=== PATIENT | female | born 1935 | race Caucasian/White ===

== ENCOUNTER → 2017-02-24 | Outpatient (CLI) | payer MEDICARE | LOC: MAMO 02-19 09:30 → KOH-I 02-19 11:00 → MAMO 02-21 10:20 | DX: Z12.31 Encounter for screening mammogram for malignant neoplasm of breast (principal); M81.0 Age-related osteoporosis without current pathological fracture; Z78.0 Asymptomatic menopausal state | CPT/HCPCS: 77080; G0202 ==

== ENCOUNTER 2020-10-31 09:51 | Inpatient (IN) | payer MEDICARE, OTHER ==
[~2020-10-31] VITALS: Ht 162.6 cm; Wt 52.7 kg
[2020-10-31 10:28] LABS: HEMOGLOBIN 13.4 gm/dl (12.3-15.3); RED BLOOD COUNT 4.05 M/UL (4.00-5.10); WHITE BLOOD COUNT 11.6 K/UL (4.5-11.0)
[2020-10-31] MEDS ORDERED: AMLODIPINE BESYL5 MG PO (11:52)
[2020-10-31] MEDS ORDERED: HYDRALAZINE HCL50 MG PO (11:53)
[2020-10-31] MEDS ORDERED: HYDROCHLOROTHIA25 MG PO (11:53)
[2020-10-31] MEDS ORDERED: COZAAR100 MG PO (11:53)
[2020-10-31] MEDS ORDERED: FISH OIL 1,0001 EACH PO (12:19)
[2020-10-31] MEDS ORDERED: ALENDRONATE SOD70 MG PO (12:19)
[2020-10-31] MEDS ORDERED: DAILY VALUE1 EACH PO (12:20)
[2020-10-31] MEDS ORDERED: VITAMIN D325 MCG PO (12:21)
[2020-10-31] MEDS ORDERED: ALEVE220 MG PO (12:22)
[2020-10-31] MEDS ORDERED: FLONASE 0.05% N16 GM (12:22)
[2020-10-31] MEDS ORDERED: PRESERVISION A1 EAC1 PO (12:22)
[2020-11-01 04:04] LABS: HEMOGLOBIN 11.8 gm/dl (12.3-15.3); RED BLOOD COUNT 3.65 M/UL (4.00-5.10)
[2020-11-01 04:07] LABS: WHITE BLOOD COUNT 8.6 K/UL (4.5-11.0)
[2020-11-02 02:44] LABS: HEMOGLOBIN 12.5 gm/dl (12.3-15.3); RED BLOOD COUNT 3.85 M/UL (4.00-5.10)
[2020-11-02 02:53] LABS: WHITE BLOOD COUNT 11.4 K/UL (4.5-11.0)
[2020-11-02 09:38] LABS: BODY FLUID SOURCE PLEURAL
[2020-11-02 09:40] LABS: MONONUCLEAR CELLS 96.1 (75-100); POLYMORPHONUCLEAR % 3.9 (0-25); RBC (AUTOMATED) 500 (0-100000); WBC (AUTOMATED) 710 (0-500)
[2020-11-02 09:48] LABS: TOTAL PROTEIN, BODY FLUID 3.5 gm/dL
--- NOTE | 2020-11-02 13:27 | NUR ---
PATIENT SET UP PER DR WOMACK'S INSTRUCTIONS. MD ARRIVES AT 836AM. PATIENT TOLERATED PROCEDURE WELL. 1200CC FLUID REMOVED. ORDERS FOR ROBITUSSIN/CDN AND STAT CHEST XRAY.PROCEDURE FINISHED AT 0910AM
[2020-11-03 03:15] LABS: HEMOGLOBIN 12.5 gm/dl (12.3-15.3); RED BLOOD COUNT 3.92 M/UL (4.00-5.10); WHITE BLOOD COUNT 11.5 K/UL (4.5-11.0)
[2020-11-03 11:35] LABS: LDH, BODY FLUID 139 U/L
[2020-11-03 12:06] LABS: BODY FLUID SOURCE PLEURAL
[2020-11-04] MEDS ORDERED: XARELTO20 MG PO (10:21)
[2020-11-04] MEDS ORDERED: LEVOFLOXACIN500 MG PO (10:21)
[2020-11-04] MEDS ORDERED: FUROSEMIDE40 MG PO (10:21)
[2020-11-04] MEDS ORDERED: LOPRESSOR 25 MG25 MG PO (10:21)
[2020-11-04] MEDS ORDERED: DILTIAZEM 12HR60 MG PO (10:21)
== END 2020-11-04 13:44 | disposition home or self-care (01) | DRG 186 ==
LOC: ER1 09:51 → CDU 11:48 → ER1 11:48 → PROG CARE 20:13
PROVIDERS: Internal Medicine; Physician Assistant; ADMIT Internal Medicine
PROC: B24BZZZ Ultrasonography of Heart with Aorta (ICD-10-PCS; principal; 2020-11-01)
PROC: 0W9B3ZX Drainage of Left Pleural Cavity, Percutaneous Approach, Diagnostic (ICD-10-PCS; 2020-11-02)
PROC: 0W9B30Z Drainage of Left Pleural Cavity with Drainage Device, Percutaneous Approach (ICD-10-PCS; 2020-11-03)
DX: J90 Pleural effusion, not elsewhere classified (principal); J96.01 Acute respiratory failure with hypoxia; E87.1 Hypo-osmolality and hyponatremia; I31.3 Pericardial effusion (noninflammatory); J98.11 Atelectasis; I48.91 Unspecified atrial fibrillation; E78.5 Hyperlipidemia, unspecified; D72.829 Elevated white blood cell count, unspecified; M81.0 Age-related osteoporosis without current pathological fracture; Z20.822 Contact with and (suspected) exposure to COVID-19; M19.90 Unspecified osteoarthritis, unspecified site; I27.20 Pulmonary hypertension, unspecified; I10 Essential (primary) hypertension; Z79.899 Other long term (current) drug therapy; Z82.49 Family history of ischemic heart disease and other diseases of the circulatory system; Z80.9 Family history of malignant neoplasm, unspecified; Z82.3 Family history of stroke; Z80.42 Family history of malignant neoplasm of prostate
CPT/HCPCS: ECHO; 36415; 71045; 71046; 71250; 80048; 80053; 82150; 82550; 82553; 82945; 83605; 83615; 83880; 83986; 84157; 84439; 84443; 84484; 85025; 85610; 85730; 87015; 87040; 87116; 87206; 89051; 93005; 93306; 94760; 96365; 96375; 96376; 99285; C1729; J0456; J0696; J1940; J1956; J2543; J7030; J7070; U0002

== ENCOUNTER → 2020-11-08 | Outpatient (CLI) | payer MEDICARE, OTHER ==
[~2020-11-08] MED LIST: ALENDRONATE SOD70 MG PO; ALEVE220 MG PO; AMLODIPINE BESYL5 MG PO; ASPIRIN CHEWABL81 MG PO; BUMETANIDE1 MG PO; CALCIUM500 MG PO; CARDIZEM CD120 MG PO; CEFDINIR300 MG PO; COZAAR100 MG PO; DAILY VALUE1 EACH PO; DILTIAZEM 12HR60 MG PO; FISH OIL 1,0001 EACH PO; FLONASE 0.05% N16 GM; FUROSEMIDE20 MG PO; FUROSEMIDE40 MG PO; HYDRALAZINE HCL50 MG PO; HYDROCHLOROTHIA25 MG PO; LEVOFLOXACIN500 MG PO; LOPRESSOR 25 MG25 MG PO; LOPRESSOR50 MG PO; PRESERVISION A1 EAC1 PO; VITAMIN D325 MCG PO; XARELTO20 MG PO
== END ==
LOC: KOH-I 11:44
DX: J90 Pleural effusion, not elsewhere classified (principal)
CPT/HCPCS: 71046

== ENCOUNTER → 2020-12-28 | Outpatient (CLI) | payer MEDICARE, OTHER | LOC: EXRD 11:13 | DX: J90 Pleural effusion, not elsewhere classified (principal) | CPT/HCPCS: 71046 ==

== ENCOUNTER → 2021-01-04 | Outpatient (CLI) | payer MEDICARE, OTHER | LOC: EXRD 09:54 | DX: I50.9 Heart failure, unspecified (principal); J18.1 Lobar pneumonia, unspecified organism; J90 Pleural effusion, not elsewhere classified | CPT/HCPCS: 71046 ==

== ENCOUNTER 2021-01-07 14:32 | Inpatient (IN) | payer MEDICARE, OTHER ==
[~2021-01-07] VITALS: Ht 162.6 cm; Wt 51.3 kg
[~2021-01-07 14:32] MED LIST changes: -ASPIRIN CHEWABL81 MG PO; -BUMETANIDE1 MG PO; -CALCIUM500 MG PO; -CARDIZEM CD120 MG PO; -CEFDINIR300 MG PO; -FUROSEMIDE20 MG PO; -LOPRESSOR50 MG PO
[2021-01-07 17:58] LABS: HEMOGLOBIN 14.5 gm/dl (12.3-15.3); RED BLOOD COUNT 4.37 M/UL (4.00-5.10); WHITE BLOOD COUNT 13.8 K/UL (4.5-11.0)
[2021-01-07 18:17] LABS: BUN/CREATININE RATIO 29 (0-10)
[2021-01-08] MEDS ORDERED: CARDIZEM CD120 MG PO (00:07)
[2021-01-08] MEDS ORDERED: ASPIRIN CHEWABL81 MG PO (00:07)
[2021-01-08] MEDS ORDERED: FUROSEMIDE20 MG PO (00:07)
[2021-01-08 04:33] LABS: HEMOGLOBIN 13.5 gm/dl (12.3-15.3); RED BLOOD COUNT 4.26 M/UL (4.00-5.10); WHITE BLOOD COUNT 12.9 K/UL (4.5-11.0)
[2021-01-08 05:01] LABS: BUN/CREATININE RATIO 27 (0-10)
[2021-01-08] MEDS ORDERED: LOPRESSOR50 MG PO (11:54)
[2021-01-08] MEDS ORDERED: CALCIUM500 MG PO (12:20)
[2021-01-09 04:28] LABS: RED BLOOD COUNT 4.63 M/UL (4.00-5.10)
[2021-01-09 04:29] LABS: WHITE BLOOD COUNT 8.5 K/UL (4.5-11.0)
[2021-01-09 04:54] LABS: BUN/CREATININE RATIO 23 (0-10)
[2021-01-09 14:13] LABS: LDH, BODY FLUID 91 U/L; TOTAL PROTEIN, BODY FLUID 2.9 gm/dL
[2021-01-09 14:26] LABS: BODY FLUID SOURCE PLEURAL
[2021-01-09 14:27] LABS: MONONUCLEAR CELLS 85 (75-100); POLYMORPHONUCLEAR % 15 (0-25); RBC (AUTOMATED) 100 (0-100000); WBC (AUTOMATED) 130 (0-500)
[2021-01-10 07:05] LABS: HEMOGLOBIN 15.1 gm/dl (12.3-15.3); RED BLOOD COUNT 4.53 M/UL (4.00-5.10); WHITE BLOOD COUNT 9.4 K/UL (4.5-11.0)
[2021-01-10 07:19] LABS: BUN/CREATININE RATIO 25 (0-10)
[2021-01-10 14:41] LABS: HEMOGLOBIN 14.4 gm/dl (12.3-15.3); RED BLOOD COUNT 4.31 M/UL (4.00-5.10)
[2021-01-10 14:49] LABS: WHITE BLOOD COUNT 12.9 K/UL (4.5-11.0)
[2021-01-10 15:00] LABS: BUN/CREATININE RATIO 23 (0-10)
[2021-01-11 03:39] LABS: HEMOGLOBIN 13.8 gm/dl (12.3-15.3); RED BLOOD COUNT 4.23 M/UL (4.00-5.10); WHITE BLOOD COUNT 9.9 K/UL (4.5-11.0)
[2021-01-11 03:59] LABS: BUN/CREATININE RATIO 30 (0-10)
[2021-01-12 03:39] LABS: HEMOGLOBIN 12.7 gm/dl (12.3-15.3); RED BLOOD COUNT 4.03 M/UL (4.00-5.10); WHITE BLOOD COUNT 9.7 K/UL (4.5-11.0)
--- NOTE | 2021-01-12 06:31 | NUR ---
F/C REMOVED PER NURSE DRIVEN PROTOCOL. UP WITH PT AMBULATING 25 FEET SO FAR. PATIENT EDUCATED. PROCEDURE TOLERATED WELL.
--- NOTE | 2021-01-12 07:58 | NUR ---
NURSE NOTIFED BY TELEMTRY THAT PT WAS IN A FIB RVR. PT IS NO LONGER IN THIS RHYTHM. HAS BEEN NOTIFIED AND WILL SEE HER SOON.
[2021-01-13 10:01] LABS: HEMOGLOBIN 12.9 gm/dl (12.3-15.3); RED BLOOD COUNT 3.91 M/UL (4.00-5.10); WHITE BLOOD COUNT 9.8 K/UL (4.5-11.0)
[2021-01-14 03:55] LABS: RED BLOOD COUNT 3.71 M/UL (4.00-5.10); WHITE BLOOD COUNT 9.5 K/UL (4.5-11.0)
[2021-01-14 04:31] LABS: BUN/CREATININE RATIO 29 (0-10)
[2021-01-14] MEDS ORDERED: BUMETANIDE1 MG PO (13:06)
[2021-01-14] MEDS ORDERED: CEFDINIR300 MG PO (13:06)
[2021-01-15 07:09] LABS: HEMOGLOBIN 11.5 gm/dl (12.3-15.3); RED BLOOD COUNT 3.53 M/UL (4.00-5.10); WHITE BLOOD COUNT 10.2 K/UL (4.5-11.0)
[2021-01-15 07:23] LABS: BUN/CREATININE RATIO 24 (0-10)
--- NOTE | 2021-01-15 17:12 | NUR ---
PT AWAITING REHAB PLACEMENT
[2021-01-16 07:07] LABS: HEMOGLOBIN 10.6 gm/dl (12.3-15.3); RED BLOOD COUNT 3.3 M/UL (4.00-5.10); WHITE BLOOD COUNT 10.2 K/UL (4.5-11.0)
[2021-01-16 07:28] LABS: BUN/CREATININE RATIO 23 (0-10)
== END 2021-01-16 15:55 | DRG 480 ==
LOC: ER1 14:32 → M/S 16:49 → CDU 16:49 → M/S 20:23
PROVIDERS: Internal Medicine; Nurse Practitioner Family; Orthopaedic Surgery; Physician Assistant; ADMIT Internal Medicine
PROC: 0W9B3ZZ Drainage of Left Pleural Cavity, Percutaneous Approach (ICD-10-PCS; 2021-01-09)
PROC: 0QS604Z Reposition Right Upper Femur with Internal Fixation Device, Open Approach (ICD-10-PCS; principal; 2021-01-10 13:25)
DX: S72.091A Other fracture of head and neck of right femur, initial encounter for closed fracture (principal); J96.01 Acute respiratory failure with hypoxia; I50.31 Acute diastolic (congestive) heart failure; J90 Pleural effusion, not elsewhere classified; N39.0 Urinary tract infection, site not specified; I48.20 Chronic atrial fibrillation, unspecified; W18.39XA Other fall on same level, initial encounter; I11.0 Hypertensive heart disease with heart failure; B96.89 Other specified bacterial agents as the cause of diseases classified elsewhere; I07.1 Rheumatic tricuspid insufficiency; I34.0 Nonrheumatic mitral (valve) insufficiency; Z20.822 Contact with and (suspected) exposure to COVID-19; M81.0 Age-related osteoporosis without current pathological fracture; E78.5 Hyperlipidemia, unspecified; I27.20 Pulmonary hypertension, unspecified; Z82.49 Family history of ischemic heart disease and other diseases of the circulatory system; Z79.01 Long term (current) use of anticoagulants; Y92.009 Unspecified place in unspecified non-institutional (private) residence as the place of occurrence of the external cause; Z82.3 Family history of stroke; Z80.42 Family history of malignant neoplasm of prostate; Z59.0 Homelessness
CPT/HCPCS: 36415; 36600; 71045; 71046; 71275; 72170; 73502; 73552; 73700; 76000; 80048; 80053; 81001; 82550; 82553; 82803; 83615; 83986; 84157; 84484; 85025; 85027; 85379; 85610; 86850; 86900; 86901; 87077; 87086; 87186; 89051; 93005; 94760; 97110-GP-CQ; 97116-GP-CQ; 97162; 97166; 97530-GP-CQ; 97535; 99284; C1713; C1729; J0171; J0690; J1100; J1650; J1940; J2370; J2405; J2704; J2795; J3010; J7120; Q9967; U0002

== ENCOUNTER → 2021-01-31 | Outpatient (CLI) | payer MEDICARE, OTHER ==
[~2021-01-31] MED LIST changes: +ASPIRIN CHEWABL81 MG PO; +BUMETANIDE1 MG PO; +CALCIUM500 MG PO; +CARDIZEM CD120 MG PO; +CEFDINIR300 MG PO; +FUROSEMIDE20 MG PO; +LOPRESSOR50 MG PO
== END ==
LOC: ECHO 10:00
DX: I50.9 Heart failure, unspecified (principal); R06.02 Shortness of breath; I34.0 Nonrheumatic mitral (valve) insufficiency; I35.8 Other nonrheumatic aortic valve disorders; I50.30 Unspecified diastolic (congestive) heart failure
CPT/HCPCS: ECHO; 93306

== ENCOUNTER 2021-04-07 08:09 | Emergency (ER) | payer MEDICARE, OTHER | END 2021-04-07 09:18 | disposition home or self-care (01) | LOC: ER1 08:09 | DX: S60.222A Contusion of left hand, initial encounter (principal); I10 Essential (primary) hypertension; I48.91 Unspecified atrial fibrillation; W22.8XXA Striking against or struck by other objects, initial encounter | CPT/HCPCS: 73130; 99283 ==

== ENCOUNTER 2021-09-03 15:38 | Emergency (ER) | payer MEDICARE, OTHER | END 2021-09-03 17:04 | disposition left against medical advice (07) | LOC: ER1 15:38 | DX: Z53.21 Procedure and treatment not carried out due to patient leaving prior to being seen by health care provider (principal) ==

== ENCOUNTER → 2021-09-19 | Outpatient (CLI) | payer MEDICARE | LOC: KOH-I 09-14 08:30 | DX: R29.898 Other symptoms and signs involving the musculoskeletal system (principal) | CPT/HCPCS: 70551 ==

== ENCOUNTER → 2021-12-03 | Outpatient (CLI) | payer MEDICARE | LOC: KOH-I 10:38 | DX: M25.472 Effusion, left ankle (principal) | CPT/HCPCS: 73610; 73620 ==

== ENCOUNTER → 2021-12-04 | Outpatient (CLI) | payer MEDICARE | LOC: US 09:38 | DX: M79.89 Other specified soft tissue disorders (principal) | CPT/HCPCS: 93971 ==

== ENCOUNTER → 2022-04-23 | Outpatient (CLI) | payer MEDICARE | LOC: EXRD 10:45 | DX: M81.0 Age-related osteoporosis without current pathological fracture (principal); M85.88 Other specified disorders of bone density and structure, other site; M85.852 Other specified disorders of bone density and structure, left thigh | CPT/HCPCS: 77080 ==